=== PATIENT | male | born 1975 ===

== ENCOUNTER 2022-12-04 06:42 | Day surgery (SDC) | payer OTHER ==
[~2022-12-04] VITALS: Ht 177.8 cm; Wt 110.6 kg
[2022-12-04] MEDS ORDERED: NORVASC 10MG10 MG PO (06:58)
[2022-12-04] MEDS ORDERED: LIPITOR 10MG10 MG PO (06:59)
[2022-12-04] MEDS ORDERED: NATURAL C500 MG PO (07:00)
[2022-12-04] MEDS ORDERED: VITAMIN D362.5 MC1 PO (07:00)
[2022-12-04 08:20] VITALS: BP 128/81; PULSE 73; TEMP 97.4
--- NOTE | 2022-12-04 08:20 | NUR ---
0820 PATIENT RETURNS TO ROOM 5 VIA CART. PATIENT IS ALERT AND ORIENTED. PATIENT AMBULATES TO RECLINER WITH THE ASSISTANCE OF 2 NURSES. RESPIRATIONS EVEN AND UNLABORED, ON ROOM AIR. VITAL SIGNS OBTAINED. PATIENT IN ROOM. PATIENT REQUESTED WATER. TOLERATED WELL. 0835 THIS NURSE DISCONTINUED IV FROM RIGHT AC WITH NO COMPLICATIONS. IV CATHETER INTACT. 0840 THIS NURSE REVIEWED DISCHARGE INSTRUCTIONS WITH PATIENT AND PATIENT . BOTH VERBALIZED UNDERSTANDING. 0843 DOCTOR IN ROOM TO SPEAK WITH PATIENT. 0850 PATIENT DISCHARGED FROM UNIT VIA WHEELCHAIR IN STABLE CONDITION.
[2022-12-04 08:35] VITALS: BP 106/83; PULSE 73
--- NOTE | 2022-12-04 12:11 | NUR ---
0650 PT AMBULATORY TO BAY 5 WITH STEADY GAIT, BREATHING EVEN AND UNLABORED. PT IS ALERT AND ORIENTED, ACCOMPANIED BY HIS . CONSENTS REVIEWED AND SIGNED BY PT. IV ESTABLISHED. LR INFUSING VIA GRAVITY AT [facility]. CALL LIGHT IN REACH. WARM BLANKET PROVIDED.
== END 2022-12-04 08:50 | disposition home or self-care (01) ==
LOC: SDCO 06:42
DX: Z12.11 Encounter for screening for malignant neoplasm of colon (principal); D12.3 Benign neoplasm of transverse colon; K57.30 Diverticulosis of large intestine without perforation or abscess without bleeding; G47.33 Obstructive sleep apnea (adult) (pediatric)
CPT/HCPCS: J2704; J7120